=== PATIENT | female | born 1940 | race Caucasian/White ===

== ENCOUNTER 2019-02-09 13:25 | Day surgery (SDC) | payer OTHER ==
[~2019-02-09] VITALS: Ht 152.4 cm; Wt 75.0 kg
[~2019-02-09 13:25] MED LIST: ASTELIN; AZELASTINE137 MCG/0.; CALCA500CH; ERGO400; ERGO400 PO; FISH OIL EC 1,1 EAC2 PO; FISH1000; Flonase 0.05% N16 GM; GINKGO BILOBA30 MG PO; GLUCOSAMINE CH1 EACH; Ginkgo Biloba40 M1; K-Dur10 MEQ; LEVSOD50; LEVSOD88 PO; MAGNESIUM100 MG PO; OMEPRAZOLE DR 20 MG; OMEPRAZOLE MAGN20 MG PO; POTCHL20ER PO; SERT20L; SERT50 PO; SIMV40; SIMV40 PO; SPIR25; SPIR25 PO; Simvastatin40 MG; Spironolactone25 MG; TOCO1000 PO; TOCO400; VALERIAN150 MG; Vitamin B Comple1 EA PO
== END 2019-02-09 15:40 | disposition home or self-care (01) ==
LOC: ORSCSDS 13:25
PROVIDERS: Internal Medicine Gastroenterology
PROC: 0DB48ZX Excision of Esophagogastric Junction, Via Natural or Artificial Opening Endoscopic, Diagnostic (ICD-10-PCS; principal; 2019-02-09 14:45)
PROC: 0D757ZZ Dilation of Esophagus, Via Natural or Artificial Opening (ICD-10-PCS; principal; 2019-02-09 14:45)
PROC: 0DB58ZX Excision of Esophagus, Via Natural or Artificial Opening Endoscopic, Diagnostic (ICD-10-PCS; principal; 2019-02-09 14:45)
DX: R13.14 Dysphagia, pharyngoesophageal phase (principal); K44.9 Diaphragmatic hernia without obstruction or gangrene; R07.9 Chest pain, unspecified; K20.9 Esophagitis, unspecified; R10.11 Right upper quadrant pain; E66.9 Obesity, unspecified; Z68.32 Body mass index [BMI] 32.0-32.9, adult; Z79.899 Other long term (current) drug therapy
CPT/HCPCS: 87081; 88305; 88312; J2704; J7120

== ENCOUNTER → 2019-04-23 | Outpatient (CLI) | payer OTHER | LOC: LAB SHORT 07:18 → LAB 07:18 | DX: L81.4 Other melanin hyperpigmentation (principal) | CPT/HCPCS: 88341; 88342 ==

== ENCOUNTER 2020-12-08 11:11 | Day surgery (SDC) | payer MEDICARE ==
[~2020-12-08] VITALS: Ht 154.9 cm; Wt 76.2 kg
[~2020-12-08 11:11] MED LIST changes: +BICARSIM FORTE125 MG PO; +CALCIUM CIT 311 EACH PO; +FISH OIL 1,2001 EAC7 PO; +GINKGO60 MG PO; +GLUCOSAMINE-CH1 EAC7 PO; +HYOS.125 PO; +MELATONIN1010 PO; +OMEP20ER PO; +VITAMIN D325 MC3 PO; +Zocor40 MG PO
== END 2020-12-08 13:02 | disposition home or self-care (01) ==
LOC: ORSCSDS 11:11
PROVIDERS: Internal Medicine Gastroenterology
PROC: 0DBN8ZX Excision of Sigmoid Colon, Via Natural or Artificial Opening Endoscopic, Diagnostic (ICD-10-PCS; principal; 2020-12-08 12:30)
PROC: 0DBK8ZX Excision of Ascending Colon, Via Natural or Artificial Opening Endoscopic, Diagnostic (ICD-10-PCS; principal; 2020-12-08 12:30)
DX: Z12.11 Encounter for screening for malignant neoplasm of colon (principal); D12.2 Benign neoplasm of ascending colon; K57.30 Diverticulosis of large intestine without perforation or abscess without bleeding; Z80.0 Family history of malignant neoplasm of digestive organs
CPT/HCPCS: 88305; J2704; J7120

== ENCOUNTER → 2021-03-27 | Outpatient (CLI) | payer MEDICARE | END | disposition home or self-care (01) | LOC: LAB SHORT 11:40 → LAB 11:40 | DX: L08.9 Local infection of the skin and subcutaneous tissue, unspecified (principal) | CPT/HCPCS: 87070; 87106; 87205 ==

== ENCOUNTER → 2023-04-08 | Outpatient (CLI) | payer MEDICARE | END | disposition home or self-care (01) | LOC: LAB SHORT 14:45 → LAB 14:45 | DX: N39.0 Urinary tract infection, site not specified (principal) | CPT/HCPCS: 87086 ==

== ENCOUNTER 2025-07-10 10:24 | Day surgery (SDC) | payer MEDICARE ==
[~2025-07-10] VITALS: Ht 154.9 cm; Wt 71.1 kg
[~2025-07-10 10:24] MED LIST changes: +Balanced Salt Epinephrine Irrigation Solution 500 mL IR SCH; +Moxifloxacin HCL 0.5 MG/0.1 ML 0.4MLSYR RIGHTEYE SCH; +Ondansetron 4 MG SoluTab MM PRN; +PHENYLEPHRINE\\TROPICAMIDE\\TETRACAINE OPHTHALMIC DILATING SOLN RIGHTEYE PRN; +Povidone-Iodine 450 DROP/30 ML Solution ONE; +Povidone-Iodine 450 DROP/30 ML Solution RIGHTEYE SCH; +Tetracaine HCl/Pf 0.5% Opth Soln 4 ml ONE; +diazePAM 5 MG,diazePAM 2 MG PO SCH
[2025-07-10] MEDS ORDERED: ESTRADIOL42.5 GM (10:42)
[2025-07-10] MEDS ORDERED: ALEN70 (10:43)
[2025-07-10] MEDS ORDERED: MIDO5 PO (10:44)
--- NOTE | 2025-07-10 10:52 | NUR ---
07/10/25 1052 Krystina Ghosh PT STATES ANXIETY LEVEL IS 5/10 IN PREOP CALL LIGHT IN HAND PT IS ON CONTINUOUS PULSE OX MONITORING
--- NOTE | 2025-07-10 11:21 | NUR ---
07/10/25 1121 Krystina Burns HR:68 RR:16 BP:149/74 SPO2:100% ON 10L BLOW BY O2
[2025-07-10 12:41] VITALS: BP 150/60
== END 2025-07-10 11:53 | disposition home or self-care (01) ==
LOC: ORSCSDS 10:24
PROVIDERS: Student in an Organized Health Care Education/Training Program
PROC: 08RJ3JZ Replacement of Right Lens with Synthetic Substitute, Percutaneous Approach (ICD-10-PCS; principal; 2025-07-10 11:30)
DX: H25.813 Combined forms of age-related cataract, bilateral (principal); I10 Essential (primary) hypertension; K21.9 Gastro-esophageal reflux disease without esophagitis; Z79.899 Other long term (current) drug therapy
CPT/HCPCS: A9270; V2632

== ENCOUNTER 2025-07-16 10:13 | Day surgery (SDC) | payer MEDICARE ==
[~2025-07-16] VITALS: Ht 154.9 cm; Wt 71.7 kg
[~2025-07-16 10:13] MED LIST changes: +ALEN70; +ESTRADIOL42.5 GM; +MIDO5 PO; +Moxifloxacin HCL 0.5 MG/0.1 ML 0.4MLSYR LEFTEYE SCH; -Moxifloxacin HCL 0.5 MG/0.1 ML 0.4MLSYR RIGHTEYE SCH; +PHENYLEPHRINE\\TROPICAMIDE\\TETRACAINE OPHTHALMIC DILATING SOLN LEFTEYE PRN; -PHENYLEPHRINE\\TROPICAMIDE\\TETRACAINE OPHTHALMIC DILATING SOLN RIGHTEYE PRN; +Povidone-Iodine 450 DROP/30 ML Solution LEFTEYE SCH; -Povidone-Iodine 450 DROP/30 ML Solution RIGHTEYE SCH
--- NOTE | 2025-07-16 10:48 | NUR ---
07/16/25 1048 German Ocampo CALL LIGHT WITHIN REACH. PT ON CONTINOUS PULSE OXIMETER FOR CLOSE MONITORING. EYE DROPS IN AROUND 1045
--- NOTE | 2025-07-16 11:34 | NUR ---
07/16/25 1134 Disha Gagnon N BP 139/64, P 64, OS SAT 98% W/ BLOWBY AT 10L.
[2025-07-16 11:48] VITALS: BP 133/67
== END 2025-07-16 11:55 | disposition home or self-care (01) ==
LOC: ORSCSDS 10:13
PROVIDERS: Student in an Organized Health Care Education/Training Program
PROC: 08RK3JZ Replacement of Left Lens with Synthetic Substitute, Percutaneous Approach (ICD-10-PCS; principal; 2025-07-16 11:30)
DX: H25.812 Combined forms of age-related cataract, left eye (principal); Z96.1 Presence of intraocular lens; I10 Essential (primary) hypertension; K21.9 Gastro-esophageal reflux disease without esophagitis; Z79.899 Other long term (current) drug therapy
CPT/HCPCS: A9270; V2632